=== PATIENT | male | born 1960 | race Two or more races ===

== ENCOUNTER 2021-08-04 14:30 | Emergency (ER) | payer OTHER ==
[~2021-08-04] VITALS: Ht 165.1 cm; Wt 94.3 kg
--- NOTE | 2021-08-04 14:55 | NUR ---
[id number] FROM HOME C/O ABDOMINAL PAIN 01/16 X TODAY. DENIES N/V/D. ABDOMEN SOFT AND NON-DISTENDED. RESPIRATION REGULAR AND UNLABORED. WILL CONTINUE TO MONITOR THE PATIENT.
[2021-08-04] MEDS ORDERED: PANTOPRAZOLE 40 MG VIAL IV ONE (15:00)
[2021-08-04] MEDS ORDERED: KETOROLAC TROMETHAMINE INJ 30 MG/ML VIAL IV ONE (15:00)
[2021-08-04] MEDS ORDERED: ONDANSETRON HCL/PF 4 MG/2 ML VIAL IVP ONE (15:00)
[2021-08-04] MEDS ORDERED: IV NS 0.9% 1,000 ML BAG IV ONE (15:00)
--- NOTE | 2021-08-04 15:04 | NUR ---
IV LINE IS ESTABLISHED, BLOOD SPECIMEN COLLECTED AND SENT TO THE LAB. THE LINE IS SALINE LOCKED.
[2021-08-04] MEDS ORDERED: PANTOPRAZOLE 40 MG VIAL ONE (15:25)
[2021-08-04] MEDS ORDERED: KETOROLAC TROMETHAMINE INJ 30 MG/ML VIAL ONE (15:26)
[2021-08-04] MEDS ORDERED: ONDANSETRON HCL/PF 4 MG/2 ML VIAL ONE (15:26)
[2021-08-04 15:46] LABS: BASOPHILS % (AUTO) 0.2 % (0.0-2.0); HEMATOCRIT 38 % (39-51); HEMOGLOBIN 12.6 g/dL (13.5-17.5); LYMPHOCYTES # (AUTO) 2.1 K/uL (0.8-4.8); LYMPHOCYTES % (AUTO) 14.4 % (20.0-44.0); MEAN CORPUSCULAR HGB CONC 33 g/dl (31.0-36.0); MEAN CORPUSCULAR VOLUME 84 fL (80-96); MONOCYTES % (AUTO) 6.7 % (2.0-12.0); NEUTROPHILS # (AUTO) 11.4 K/uL (1.8-8.9); NEUTROPHILS % (AUTO) 76.7 % (43.0-81.0); PLATELET COUNT (AUTO) 450 K/uL (150-450); RED BLOOD CELL COUNT(AUTO) 4.52 MIL/uL (4.5-6.0); WHITE BLOOD COUNT (AUTO) 14.9 K/uL (4.3-11.0)
[2021-08-04 15:54] LABS: CALCIUM, SERUM 9.3 mg/dL (8.5-10.1); CARBON DIOXIDE 29 mmol/L (21-32); CHLORIDE 98 mmol/L (98-107); CREATININE 1.3 mg/dL (0.6-1.3); GLUCOSE 158 mg/dL (74-106); POTASSIUM 2.9 mmol/L (3.5-5.1); SODIUM SERUM 139 mmol/L (136-145); UREA NITROGEN, BLOOD 15 mg/dL (7-18)
[2021-08-04 16:01] LABS: ALANINE AMINOTRANSFERASE 50 U/L (12-78); ALBUMIN 3.8 g/dL (3.4-5.0); ALKALINE PHOSPHATASE 115 U/L (46-116); ASPARTATE AMINOTRANSFERASE 21 U/L (15-37); BILIRUBIN,DIRECT 0.1 mg/dL (0.0-0.2); BILIRUBIN,TOTAL 0.4 mg/dL (0.2-1.0); LIPASE 79 U/L (73-393); TOTAL PROTEIN, SERUM 8.3 g/dL (6.4-8.2)
[2021-08-04] MEDS ORDERED: IV PREMIX 0.45% NS + KCL 1,000 ML IV ONE (16:30)
--- NOTE | 2021-08-04 16:30 | NUR ---
URINE COLLECTED AND SENT TO THE LAB
[2021-08-04 16:49] LABS: BILIRUBIN,URINE Negative (NEGATIVE); COLOR,URINE YELLOW (YELLOW); LEUKOCYTE ESTERASE ,URINE Small (NEGATIVE); NITRITE, URINE Negative (NEGATIVE); PH,URINE 5.5 (5.0-8.0); PROTEIN,URINE 30 mg/dl (NEGATIVE); UGLUCOSE Negative (NEGATIVE); UROBILINOGEN,URINE 0.2 EU/dL (0.2)
[2021-08-04] MEDS ORDERED: POTASSIUM CHLORIDE 20 MEQ TAB.PRT.SR PO ONE ×2 (17:00→17:02)
[2021-08-04] MEDS ORDERED: PIPERACILLIN /TAZOBACTAM 3.375 G in IV D5W 50 ML IV ONE (17:00)
[2021-08-04 17:02] LABS: BACTERIA,URINE Many /HPF (None Seen); SQUAMOUS EPITHELIAL CELL,UR Few /HPF (None Seen)
[2021-08-04] MEDS ORDERED: PANT20TA2 PO (17:30)
[2021-08-04] MEDS ORDERED: HYDR-3972 PO (17:30)
[2021-08-04] MEDS ORDERED: AMOX-430 PO (17:30)
[2021-08-04] MEDS ORDERED: POTA-58 PO (17:35)
--- NOTE | 2021-08-04 19:19 | NUR ---
REPORT GIVEN TO NURSE ROSENBERG
--- NOTE | 2021-08-04 20:40 | NUR ---
JULIOCESAR PAGED FOR PT TO TAKE HIM HOME
--- NOTE | 2021-08-04 21:16 | NUR ---
PATIENT HERE TO PICK HIM UP
[2021-08-04 21:18] VITALS: BP 131/74
--- NOTE | 2021-08-04 21:18 | NUR ---
Patient discharged to home in stable condition. Rx and Written and verbal after care instructions given. Patient verbalizes understanding of instruction.
== END 2021-08-04 21:19 | disposition home or self-care (01) ==
LOC: ER 15:20
DX: K57.32 Diverticulitis of large intestine without perforation or abscess without bleeding (principal); N39.0 Urinary tract infection, site not specified; I10 Essential (primary) hypertension; E11.9 Type 2 diabetes mellitus without complications
CPT/HCPCS: 36415; 71045; 74176; 80048; 80076; 81001; 82962; 83690; 84484; 85025; 87086; 87186; 93005; 96361; 96365; 96366; 96367; 96375; 99285; C9113; J1885; J2405; J2543; J7030; J7060

== ENCOUNTER 2021-08-11 15:14 | Emergency (ER) | payer MEDICAID, OTHER ==
[~2021-08-11] VITALS: Ht 165.1 cm; Wt 94.3 kg
[~2021-08-11 15:14] MED LIST: AMOX-430 PO; HYDR-3972 PO; PANT20TA2 PO; POTA-58 PO
--- NOTE | 2021-08-11 15:14 | NUR ---
[id number] FROM HOME C/O MID-EPIGASTRIC PAIN X1WEEK. PT STATED THAT HE WAS IN THE ER 08/04 FOR THE SAME PAIN AND THAT IT NEVER SUBSIDED. PT VITAL ARE WITHIN NORMAL LIMITS. BREATHING IS REGULAR AND UNLABORED. PT WAS ATTCHED TO [employer]UD[employer] DIRECTOR AND PULSE [employer]X. WILL CONTINUE TO MONITOR
--- NOTE | 2021-08-11 15:20 | NUR ---
IV WAS STABLISHED R HAND 20G. LABS WERE COLLECTED AND SENT.
[2021-08-11] MEDS: ONDANSETRON HCL/PF - ER 4 MG/2 ML VIAL IV ONE (15:30)
[2021-08-11] MEDS: FAMOTIDINE/PF INJ 20 MG/2 ML VIAL IV ONE (15:30)
[2021-08-11] MEDS ORDERED: ONDANSETRON HCL/PF 4 MG/2 ML VIAL ONE (15:36)
[2021-08-11] MEDS ORDERED: FAMOTIDINE/PF INJ 20 MG/2 ML VIAL IV ONE (15:37)
[2021-08-11 15:50] LABS: BASOPHILS % (AUTO) 0.1 % (0.0-2.0); EOSINOPHILS % (AUTO) 1.7 % (0.0-6.0); HEMATOCRIT 42 % (39-51); HEMOGLOBIN 13.7 g/dL (13.5-17.5); LYMPHOCYTES % (AUTO) 5.8 % (20.0-44.0); MEAN CORPUSCULAR HGB CONC 33 g/dl (31.0-36.0); MEAN CORPUSCULAR VOLUME 84 fL (80-96); MONOCYTES # (AUTO) 1.1 K/uL (0.1-1.30); MONOCYTES % (AUTO) 6.6 % (2.0-12.0); NEUTROPHILS # (AUTO) 14.2 K/uL (1.8-8.9); NEUTROPHILS % (AUTO) 85.8 % (43.0-81.0); PLATELET COUNT (AUTO) 488 K/uL (150-450); RED BLOOD CELL COUNT(AUTO) 4.92 MIL/uL (4.5-6.0); WHITE BLOOD COUNT (AUTO) 16.6 K/uL (4.3-11.0)
[2021-08-11 16:12] LABS: CALCIUM, SERUM 9.8 mg/dL (8.5-10.1); CREATININE 1.3 mg/dL (0.6-1.3); POTASSIUM 3.7 mmol/L (3.5-5.1)
--- NOTE | 2021-08-11 16:33 | NUR ---
URINE COLLECTED AND SENT TO LAB
--- NOTE | 2021-08-11 16:57 | NUR ---
SAHIL LEWIS (DAUGHTER) [phone]
[2021-08-11 17:07] LABS: BILIRUBIN,URINE NEGATIVE (NEGATIVE); COLOR,URINE YELLOW (YELLOW); LEUKOCYTE ESTERASE ,URINE NEGATIVE (NEGATIVE); NITRITE, URINE NEGATIVE (NEGATIVE); PH,URINE 5.5 (5.0-8.0); PROTEIN,URINE 30 mg/dl (NEGATIVE); UGLUCOSE NEGATIVE (NEGATIVE); UROBILINOGEN,URINE 0.2 EU/dL (0.2)
[2021-08-11 17:14] LABS: BACTERIA,URINE RARE /HPF (None Seen); MUCUS,URINE Few /LPF (None Seen); WBC,URINE 0-2 /HPF (0-3)
[2021-08-11] MEDS: LIDOCAINE VISCOUS 2% UD 15 ML UDC MM ONE (18:00)
[2021-08-11] MEDS: MAG HYDROX/AL HYDROX/SIMETH 30 ML UDC PO ONE (18:00)
--- NOTE | 2021-08-11 18:05 | NUR ---
PT TAKEN TO CT
[2021-08-11] MEDS ORDERED: MAG HYDROX/AL HYDROX/SIMETH 30 ML UDC ONE (18:22)
[2021-08-11] MEDS ORDERED: LIDOCAINE VISCOUS 2% UD 15 ML UDC ONE (18:22)
--- NOTE | 2021-08-11 20:27 | NUR ---
SPOKE TO [facility] REGARDING PICKUP AND WAS TOLD THEIR ETA WAS [phone]
--- NOTE | 2021-08-11 21:02 | NUR ---
Patient discharged to home in stable condition. Written and verbal after care instructions given. Patient verbalizes understanding of instruction.IV line discontinued and gentle pressure applied to site to control bleeding. Was picked up by without any incident.
[2021-08-11 21:11] VITALS: BP 131/85
== END 2021-08-11 21:11 | disposition home or self-care (01) ==
LOC: ER 15:16
DX: R10.13 Epigastric pain (principal); E11.9 Type 2 diabetes mellitus without complications; I10 Essential (primary) hypertension; Z60.2 Problems related to living alone; Z79.899 Other long term (current) drug therapy
CPT/HCPCS: 36415; 74176; 80048; 81001; 82962; 83690; 85025; 93005; 96374; 96375; 99285; J2405 ×2; J3490

== ENCOUNTER 2022-02-24 00:20 | Emergency (ER) | payer MEDICAID, OTHER ==
[~2022-02-24] VITALS: Ht 170.2 cm; Wt 65.8 kg
--- NOTE | 2022-02-24 00:25 | NUR ---
[id number] FROM HOME C/O CHRONIC ABDOMINAL PAIN WORSE TODAY -N/V + DIARRHEA. PLACED COMFORTABLY IN BED. VITALS CHECKED.
[2022-02-24] MEDS ORDERED: IV NS 0.9% 500 ML BAG IV ONE (00:30)
[2022-02-24] MEDS ORDERED: ONDANSETRON HCL/PF 4 MG/2 ML VIAL IVP ONE (00:30)
[2022-02-24] MEDS ORDERED: LIDOCAINE VISCOUS 2% UD 15 ML UDC MM ONE (00:30)
[2022-02-24] MEDS ORDERED: MAG HYDROX/AL HYDROX/SIMETH 30 ML UDC PO ONE ×2 (00:30→03:30)
--- NOTE | 2022-02-24 00:30 | NUR ---
SEEN BY DR BRADEN AT BEDSIDE.
[2022-02-24] MEDS ORDERED: MAG HYDROX/AL HYDROX/SIMETH 30 ML UDC ONE ×2 (00:35→03:30)
[2022-02-24] MEDS ORDERED: LIDOCAINE VISCOUS 2% UD 15 ML UDC ONE (00:35)
--- NOTE | 2022-02-24 00:35 | NUR ---
EKG DONE AT BEDSIDE
--- NOTE | 2022-02-24 00:45 | NUR ---
IV CANNULA G20 INSERTED ON RIGHT FOREARM. BLOOD DRAWN AND SENT TO LAB
[2022-02-24 00:55] LABS: BASOPHILS % (AUTO) 0.5 % (0.0-2.0); EOSINOPHILS % (AUTO) 4.9 % (0.0-6.0); HEMATOCRIT 38 % (39-51); HEMOGLOBIN 12.4 g/dL (13.5-17.5); LYMPHOCYTES % (AUTO) 23.3 % (20.0-44.0); MEAN CORPUSCULAR HGB CONC 33 g/dl (31.0-36.0); MEAN CORPUSCULAR VOLUME 84 fL (80-96); MONOCYTES # (AUTO) 0.7 K/uL (0.1-1.30); MONOCYTES % (AUTO) 7.8 % (2.0-12.0); NEUTROPHILS # (AUTO) 5.5 K/uL (1.8-8.9); NEUTROPHILS % (AUTO) 63.5 % (43.0-81.0); PLATELET COUNT (AUTO) 307 K/uL (150-450); RED BLOOD CELL COUNT(AUTO) 4.49 MIL/uL (4.5-6.0); WHITE BLOOD COUNT (AUTO) 8.7 K/uL (4.3-11.0)
[2022-02-24] MEDS ORDERED: ONDANSETRON HCL/PF 4 MG/2 ML VIAL ONE (00:58)
[2022-02-24 01:04] LABS: CALCIUM, SERUM 9.1 mg/dL (8.5-10.1); CARBON DIOXIDE 31 mmol/L (21-32); CHLORIDE 101 mmol/L (98-107); CREATININE 1.2 mg/dL (0.6-1.3); GLUCOSE 152 mg/dL (74-106); POTASSIUM 3.8 mmol/L (3.5-5.1); SODIUM SERUM 138 mmol/L (136-145); UREA NITROGEN, BLOOD 15 mg/dL (7-18)
--- NOTE | 2022-02-24 01:10 | NUR ---
PATIENT BROUGHT TO CT DEPT
[2022-02-24 01:11] LABS: ALANINE AMINOTRANSFERASE 48 U/L (12-78); ALBUMIN 3.9 g/dL (3.4-5.0); ALKALINE PHOSPHATASE 143 U/L (46-116); ASPARTATE AMINOTRANSFERASE 22 U/L (15-37); BILIRUBIN,DIRECT 0.1 mg/dL (0.0-0.2); BILIRUBIN,TOTAL 0.3 mg/dL (0.2-1.0); LIPASE 83 U/L (73-393); TOTAL PROTEIN, SERUM 7.9 g/dL (6.4-8.2)
--- NOTE | 2022-02-24 01:40 | NUR ---
URINE SPECIMEN SENT TO LAB
[2022-02-24 01:52] LABS: BILIRUBIN,URINE NEGATIVE (NEGATIVE); COLOR,URINE LIGHT YELLOW (YELLOW); LEUKOCYTE ESTERASE ,URINE MODERATE (NEGATIVE); NITRITE, URINE NEGATIVE (NEGATIVE); PROTEIN,URINE NEGATIVE (NEGATIVE); UGLUCOSE NEGATIVE (NEGATIVE); UROBILINOGEN,URINE 0.2 EU/dL (0.2)
--- NOTE | 2022-02-24 02:36 | NUR ---
followed up with [facility] regarding imaging read
--- NOTE | 2022-02-24 02:36 | NUR ---
Lupis sarmiento in BOB - 02/24/22 at 0237 by DAVID followed up regarding imaging read
[2022-02-24] MEDS ORDERED: CIPR-262 PO (03:20)
[2022-02-24] MEDS ORDERED: CIPROFLOXACIN HCL 500 MG TABLET ONE (03:23)
[2022-02-24] MEDS ORDERED: CIPROFLOXACIN HCL 500 MG TABLET PO ONE (03:30)
--- NOTE | 2022-02-24 03:41 | NUR ---
Patient discharged to home in stable condition. Written and verbal after care instructions given. Patient verbalizes understanding of instruction.
[2022-02-24 03:42] VITALS: BP 142/79
[2022-02-24 06:28] LABS: BACTERIA,URINE None seen /HPF (None Seen); RBC,URINE 0-2 /HPF (0-2); SQUAMOUS EPITHELIAL CELL,UR 0-2 /HPF (None Seen)
== END 2022-02-24 03:42 | disposition home or self-care (01) ==
LOC: ER 00:26
DX: N39.0 Urinary tract infection, site not specified (principal); R10.9 Unspecified abdominal pain; R11.0 Nausea; I10 Essential (primary) hypertension; E11.9 Type 2 diabetes mellitus without complications; Z60.2 Problems related to living alone; Z79.899 Other long term (current) drug therapy
CPT/HCPCS: 36415; 71045; 74176; 80048; 80076; 81001; 83690; 84484 ×2; 85025; 87077; 87086; 87186; 93005; 96361; 96374; 99285; J2405; J7030; J7040

== ENCOUNTER 2022-08-03 23:35 | Emergency (ER) | payer MEDICAID, OTHER ==
[~2022-08-03] VITALS: Ht 170.2 cm; Wt 83.9 kg
[~2022-08-03 23:35] MED LIST changes: +CIPR-262 PO
[2022-08-04] VITALS: BP 141/75
[2022-08-04] MEDS ORDERED: KETOROLAC TROMETHAMINE INJ 60 MG/2 ML VIAL IM ONE (00:30)
[2022-08-04] MEDS ORDERED: KETOROLAC TROMETHAMINE INJ 30 MG/ML VIAL ONE (00:32)
--- NOTE | 2022-08-04 02:02 | NUR ---
CALLED [facility] FOR [facility] 10 MIN ETA
--- NOTE | 2022-08-04 02:55 | NUR ---
Patient discharged to home in stable condition. Written and verbal after care instructions given. Patient verbalizes understanding of instruction.
== END 2022-08-04 02:56 | disposition home or self-care (01) ==
LOC: ER 23:58
DX: G89.29 Other chronic pain (principal); M54.50 Low back pain, unspecified; I10 Essential (primary) hypertension; E11.9 Type 2 diabetes mellitus without complications; Z60.2 Problems related to living alone; Z79.899 Other long term (current) drug therapy
CPT/HCPCS: 99285; 72131; 96372; J1885